=== PATIENT | male | born 1980 ===

== ENCOUNTER 2024-02-20 12:35 | Outpatient (AMB) | payer MEDICAID, SELFPAY ==
--- NOTE | 2024-02-20 12:58 | A.OFFVIS_ITS ---
Intake Visit Reasons: Bilateral shoulder pains and weakness Intake Note: Thien is a 43 year old right hand dominant male who presents with complaints of progressively worsening bilateral shoulder pains and weakness, right greater than left. The patient describes his pains as sharp in nature. Most of the pain is along the lateral aspects of both of his shoulders. He reports weakness when lifting his hands above shoulder height. The patient is symptoms have gotten worse over the last 3 years in spite of continued non operative treatments. He has failed the last 6 weeks of conservative treatment which have included physical therapy exercises, anti-inflammatory medicine and Tylenol. He has had cortisone injections in the past which gave him minimal relief. Those injections were performed by another provider. He denies any numbness or tingling in either of his upper extremities. Lead Janitor Required: Yes Lead Janitor Language: Furnace Process Supervisor Services: Lead Janitor Present Lead Janitor Name: Juanita([id number]) Allergies No Known Allergies Allergy (Verified 02/20/24 13:04) Medication List - Last Reconciled 02/20/24 by Shane Yan MD No Known Home Meds [facility] Social History (Updated 02/20/24 @ 13:06 by Nurys Qureshi CMA) Current occupational status: employed Current occupation: [employer] Physical Exam Const Other: Well-nourished well-developed very friendly male awake alert and oriented x3 in no acute distress Extrem Other: Bilateral upper extremity examination shows good capillary refill, no skin lesions noted, normal sensation light touch Bilateral shoulder examination shows forward flexion to 160 degrees, external rotation to 40 degrees, internal rotation to level L2, 4+ out of 5 strength with supraspinatus testing, tenderness over his acromioclavicular joint, no instability Results Reviewed Results Reviewed: X-rays of the patient's bilateral shoulders show severe acromioclavicular joint narrowing, type 2 acromion, no acute bony abnormalities Assessment & Plan Assessment & Plan (1) Right shoulder pain: Code(s): M25.511 - Pain in right shoulder Category: Medical Plan Mr. Dereck Angel presents with progressively worsening bilateral shoulder pains and weakness, right greater than left, due to impingement syndrome and possible rotator cuff tearing. Thus, I will send the patient for an MRI of his right shoulder for further evaluation. I will see him back once the MRI is completed to discuss the findings and treatment options. Feel free to call me at any time should questions regarding his orthopedic management arise. Thank you very much for asking me to see this very friendly patient. I spent 22 minutes in reviewing the patient's records and imaging studies, seeing the patient and documenting in the medical record. Orders: Orders XR shoulder RT min 2V Today M25.511 - Pain in right shoulder XR shoulder LT min 2V Today M25.512 - Pain in left shoulder MR shoulder RT wo con Today M25.511 - Pain in right shoulder Coding Level of Care Code New Pt Level 3 (71501) Complex EM visit Add On G2211 Diagnoses Right shoulder pain M25.511
== END 2024-02-20 13:15 | disposition home or self-care (01) ==
PROVIDERS: PCP Physician Assistant; Visit Provider Orthopaedic Surgery
DX: M75.41 Impingement syndrome of right shoulder (principal); M25.512 Pain in left shoulder
CPT/HCPCS: 99203

== ENCOUNTER 2024-02-20 12:35 | Outpatient (REF) | payer MEDICAID, SELFPAY ==
--- NOTE | ~2024-02-20 | XR_ITS ---
EXAMINATION: XR SHOULDER LEFT 2 VIEWS CLINICAL INFORMATION: M25.512 - Pain in left shoulder. COMPARISON: None available TECHNIQUE: AP and scapular views of the left shoulder. FINDINGS: Mild acromioclavicular osteoarthritis. No glenohumeral joint space narrowing or marginal osteophytes. No osseous erosion. No fracture or dislocation. Possible loose body within the bicipital groove measuring up to 1.0 cm. XR/XR shoulder LT min 2V IMPRESSION: 1. Mild acromioclavicular and glenohumeral osteoarthritis. 2. Possible loose body within the bicipital groove measuring up to 1.0 cm. Electronically signed by: Nikolay Villela MD 04/29/2024 10:42 AM [facility]
--- NOTE | ~2024-02-20 | XR_ITS ---
EXAMINATION: XR SHOULDER RIGHT 2 VIEWS CLINICAL INFORMATION: Pain in right shoulder M25.511. COMPARISON: None TECHNIQUE: AP and scapular views of the right shoulder. FINDINGS: No acute fracture or dislocation. Mild acromioclavicular osteoarthritis. No glenohumeral joint space narrowing or marginal osteophytes. No osseous erosion. No abnormal soft tissue calcification. XR/XR shoulder RT min 2V IMPRESSION: Mild acromioclavicular osteoarthritis. Electronically signed by: Nikolay Villela MD 04/29/2024 10:35 AM [facility]
== END 2024-02-20 12:36 | disposition home or self-care (01) ==
LOC: HO.HOSX 12:35
PROVIDERS: PCP Physician Assistant; Visit Provider Orthopaedic Surgery
DX: M25.512 Pain in left shoulder (principal); M25.511 Pain in right shoulder
CPT/HCPCS: 73030; 99202

== ENCOUNTER 2024-03-07 07:05 | Outpatient (REF) | payer MEDICAID, SELFPAY | END 2024-03-07 07:06 | disposition home or self-care (01) | LOC: HO.MRI 07:05 | PROVIDERS: PCP Physician Assistant; Visit Provider Orthopaedic Surgery | DX: Z13.89 Encounter for screening for other disorder (principal) ==